=== PATIENT | female | born 1975 | race Two or more races ===

== ENCOUNTER 2022-10-22 17:49 | Outpatient (REF) | payer MEDICAID, SELFPAY ==
[2022-10-22 22:58] LABS: Bilirubin Negative (Negative); Blood Large (Negative); Clarity Sl Cloudy (Clear); Glucose Negative (Negative); Ketones Negative (Negative); Leukocyte Esterase Moderate (Negative); Nitrite Positive (Negative); Specific Gravity 1.015 (1.005-1.025); Urobilinogen 0.2 mg/dL (Up to 0.2)
[2022-10-22 23:57] LABS: Bacteria Rare HPF (Negative); C & S Indicated? Yes; Casts Negative LPF (Negative); Crystals Negative HPF (Negative); Epithelial Cells Rare HPF (Negative); Mucus Negative (Negative); RBC >50 HPF (0-2)
== END 2022-10-22 17:50 | disposition home or self-care (01) ==
LOC: LBN 17:49
PROVIDERS: Visit Provider Physician Assistant
DX: R39.9 Unspecified symptoms and signs involving the genitourinary system (principal)
CPT/HCPCS: 87077; 81003; 81015; 87086; 87186